=== PATIENT | male | born 1960 | race Two or more races ===

== ENCOUNTER → 2019-01-25 | Outpatient (CLI) | payer OTHER ==
[~2019-01-25] MED LIST: no meds
[2019-01-25 09:22] LABS: BASOPHILS # (AUTO) 0.05 x10^3/uL (0-0.1); BASOPHILS % (AUTO) 1 % (0-1); EOSINOPHILS # (AUTO) 0.24 x10^3/uL (0-0.4); EOSINOPHILS % (AUTO) 3 % (1-7); LYMPHOCYTES # (AUTO) 1.84 x10^3/uL (1-3.4); LYMPHOCYTES % (AUTO) 25 % (22-44); MD NO; MEAN CORPUSCULAR HEMOGLOBIN 28.3 pg (27.5-34.5); MEAN CORPUSCULAR HGB CONC 33.3 g/dL (33.2-36.2); MEAN PLATELET VOLUME 7.7 fL (7.4-10.4); MONOCYTES # (AUTO) 0.66 x10^3/uL (0.2-0.8); MONOCYTES % (AUTO) 9 % (2-9); NEUTROPHILS # (AUTO) 4.65 x10^3/uL (1.8-6.8); NEUTROPHILS % (AUTO) 62 % (42-75); PLATELET COUNT 306 x10^3/uL (130-400); RED BLOOD COUNT 5.43 x10^6/uL (4.38-5.82); RED CELL DISTRIBUTION WIDTH 14.5 % (9.4-14.8)
[2019-01-25 09:50] LABS: ALANINE AMINOTRANSFERASE 42 U/L (12-78); ALBUMIN 3.7 g/dL (3.4-5.0); ALKALINE PHOSPHATASE 68 U/L (45-117); ANION GAP 7 mmol/L (5-15); BILIRUBIN,TOTAL 0.4 mg/dL (0.2-1.0); CALCIUM 8.8 mg/dL (8.5-10.1); CHLORIDE 109 mmol/L (98-107); CREATININE 1.05 mg/dL (0.7-1.3); TOTAL PROTEIN 7.3 g/dL (6.4-8.2)
== END | disposition home or self-care (01) ==
LOC: STAR 08:31
PROVIDERS: ATTEND Surgery
DX: Z01.818 Encounter for other preprocedural examination (principal); K43.9 Ventral hernia without obstruction or gangrene
CPT/HCPCS: 36415; 80053; 85025

== ENCOUNTER 2019-01-30 08:32 | Day surgery (SDC) | payer OTHER ==
[~2019-01-30] VITALS: Ht 167.6 cm; Wt 106.3 kg
[2019-01-30 09:14] VITALS: BP 130/81
[2019-01-30] MEDS ORDERED: LACTATED RINGERS 1,000 ML IV SCH (09:16)
[2019-01-30] MEDS ORDERED: ACETAMINOPHEN 500 MG TABLET PO STA (09:16)
[2019-01-30] MEDS ORDERED: GABAPENTIN 300 MG CAPSULE PO STA (09:16)
[2019-01-30] MEDS ORDERED: FENTANYL PF 250 MCG/5ML ONE (09:34)
[2019-01-30] MEDS ORDERED: BUPIVACAINE 0.25% ONE (09:49)
[2019-01-30] MEDS ORDERED: OXYcodone 5 MG/5 ML ORAL.SOL UDC PO PRN (10:00)
[2019-01-30] MEDS ORDERED: HYDROmorphone 2 MG/ML, 1ML IVPush PRN (10:00)
[2019-01-30] MEDS ORDERED: FENTANYL PF 100 MCG/2ML IV PRN (10:00)
[2019-01-30] MEDS ORDERED: MEPERIDINE/PF 25MG/ML,1ML IVPush PRN (10:00)
[2019-01-30] MEDS ORDERED: PROMETHAZINE 25 MG/ML, 1ML IV PRN (10:00)
[2019-01-30] MEDS ORDERED: LABETALOL 5MG/ML, 20ML IV PRN (10:00)
[2019-01-30] MEDS ORDERED: hydrALAzine 20 MG/ML, 1ML IV PRN (10:00)
[2019-01-30] MEDS ORDERED: HALOPERIDOL 5 MG/ML IV PRN (10:00)
[2019-01-30] MEDS ORDERED: EPINEPHRINE 1 MG/ML, 1ML INFIL ONE (10:43)
[2019-01-30] MEDS ORDERED: PROPOFOL 10 MG/ML, 20ML ONE (17:35)
[2019-01-30] MEDS ORDERED: DEXAMETHASONE 4 MG/ML, 1ML ONE (17:35)
[2019-01-30] MEDS ORDERED: SUCCINYLCHOLINE 20 MG/ML, 10ML ONE (17:35)
[2019-01-30] MEDS ORDERED: GLYCOPYRROLATE 0.2MG/1ML, 5ML ONE (17:35)
[2019-01-30] MEDS ORDERED: ONDANSETRON 2MG/ML, 2ML ONE (17:35)
[2019-01-30] MEDS ORDERED: CEFAZOLIN 1,000 MG ONE (17:35)
[2019-01-30] MEDS ORDERED: ROCURONIUM 10MG/ML,5ML ONE (17:35)
[2019-01-30] MEDS ORDERED: NEOSTIGMINE 1 MG/ML, 10ML ONE (17:35)
== END 2019-01-30 13:38 | disposition home or self-care (01) ==
LOC: OUT 08:32
PROVIDERS: ATTEND Surgery
DX: K43.6 Other and unspecified ventral hernia with obstruction, without gangrene (principal); E66.9 Obesity, unspecified; Z87.891 Personal history of nicotine dependence; Z90.49 Acquired absence of other specified parts of digestive tract
CPT/HCPCS: 49561; 49568; C1781; J0171; J0330; J0690; J1100; J2405; J2704; J2710; J3010; J3490; J7120